=== PATIENT | female | born 1945 | race Caucasian/White ===

== ENCOUNTER → 2017-07-06 | Outpatient (CLI) | payer MEDICARE, OTHER ==
--- NOTE | 2017-07-06 14:33 | RAD ---
DATE: 07/06/2017. EXAM: DIGITAL SCREEN BILAT W/CAD. HISTORY: Routine mammographic screening. COMPARISON: 12/25/2015. This study was interpreted with the benefit of Computerized Aided Detection (CAD). FINDINGS: The breast parenchyma is heterogeneously dense, which could reduce sensitivity of mammography. Breast parenchyma level C.. There are no suspicious masses, microcalcifications or architectural distortion. The parenchymal pattern is stable, with greater density on the left than right. A lymph node laterally on the stable. Scattered and vascular calcifications are benign. BI-RADS CATEGORY: 2 BENIGN FINDING(S). RECOMMENDED FOLLOW-UP: 12M 12 MONTH FOLLOW-UP. PQRS compliance statement: Patient information was entered into a reminder system with a target due date 07/06/2018 for the next mammogram. Mammography is a sensitive method for finding small breast cancers, but it does not detect them all and is not a substitute for careful clinical examination. A negative mammogram does not negate a clinically suspicious finding and should not result in delay in biopsying a clinically suspicious abnormality. "Our facility is accredited by the [employer] Mammography Program."
== END | disposition home or self-care (01) ==
LOC: MAMMO 11:33
PROVIDERS: ATTEND Family Medicine
DX: Z12.31 Encounter for screening mammogram for malignant neoplasm of breast (principal)
CPT/HCPCS: 77067

== ENCOUNTER → 2017-08-30 | Outpatient (CLI) | payer MEDICARE, OTHER ==
--- NOTE | 2017-08-31 07:26 | RAD ---
Carotid ultrasound, 08/30/2017: History: Old stroke, carotid artery stenosis Duplex evaluation of the carotid arteries in the neck was performed including grayscale, color-flow and spectral Doppler analysis. There is moderate atherosclerotic plaquing in both common carotid arteries extending into the bifurcations. The plaques are partially calcified. The internal carotid arteries are tortuous bilaterally. The peak systolic velocity in the right internal carotid artery is 90 cm/s with an end-diastolic velocity of 24 cm/s. This produces an internal carotid to common carotid artery ratio on the right of 1.3. These Doppler findings suggest narrowing in the 0-50% diameter range. On the left, the peak systolic velocity in the internal carotid artery is 125 cm/s with an end-diastolic velocity of 24 cm/s. The internal carotid to common carotid artery ratio on the left is 1.4. These Doppler findings also suggest luminal narrowing in the 0-50% diameter range. Antegrade flow is present in both vertebral arteries in the neck. IMPRESSION: Moderate atherosclerotic plaquing at both carotid bifurcations with underlying luminal narrowing in the 0-50% diameter range bilaterally. Note: Stenosis calculations for CTA, MRA and conventional angiography are based upon determination of the distal ICA diameter in accordance with the NASCET methodology. Stenosis calculations for Doppler studies are derived from validated velocity criteria which are known to correlate with NASCET methodology of determining stenosis.
== END | disposition home or self-care (01) ==
LOC: US 13:54
PROVIDERS: ATTEND Family Medicine
DX: I65.23 Occlusion and stenosis of bilateral carotid arteries (principal)
CPT/HCPCS: 93880

== ENCOUNTER 2017-12-13 17:33 | Inpatient (IN) | payer MEDICARE, OTHER ==
[~2017-12-13] VITALS: Ht 165.1 cm; Wt 77.3 kg
--- NOTE | 2017-12-13 18:19 | PHYS DOC ---
Past History Past Medical History: COPD, CVA, High Cholesterol, Hypertension, Seizure Past Surgical History: No Surgical History Alcohol Use: None Drug Use: None Adult General Chief Complaint Chief Complaint: CHEST PAIN HPI HPI 71-year-old female presenting the emergency department today after being sent here from her doctor's office for evaluation. The patient has a history of a CVA and has difficulty communicating. She has been having chest pain intermittently over the past few days. She currently denies chest pain. She is a poor historian due to previous CVA. Review of systems is negative for abdominal pain nausea vomiting or diaphoresis. She is here with her daughter. All other review of systems is negative unless otherwise noted in history of present illness. ED course: 71-year-old female presenting the emergency pertinent today with intermittent chest pain over the past few days. She had an EKG which was done in clinic which showed a left bundle branch block pattern. Here the patient also has a left bundle branch block. She is comfortable appearing on examination is not diaphoretic. She denies having any chest pain or shortness of breath at this time. Previous EKG obtained and reviewed by myself from December 302011 which shows a normal QRS with LVH. No left bundle branch block pattern then. Scarbossa negative. Blood work and chest x-ray ordered. Patient was signed out at 6:10 PM with plans to follow-up on blood work and chest x-ray patient will likely be admitted for cardiac rule out and cardiac consultation. Review of Systems Review of Systems SEE ABOVE. Allergies Allergies Allergies Coded Allergies Type Severity Reaction Last Updated Verified No Known Drug Allergies 08/01/16 No Physical Exam Physical Exam SEE ABOVE Constitutional: Well developed, well nourished, no acute distress, non-toxic appearance. [] HENT: Normocephalic, atraumatic, bilateral external ears normal, oropharynx moist, no oral exudates, nose normal. [] Eyes: PERRLA, EOMI, conjunctiva normal, no discharge. [] Neck: Normal range of motion, no tenderness, supple, no stridor. [] Cardiovascular:Heart rate regular rhythm, no murmur [] Lungs & Thorax: Bilateral breath sounds clear to auscultation [] Abdomen: Bowel sounds normal, soft, no tenderness, no masses, no pulsatile masses. [] Skin: Warm, dry, no erythema, no rash. [] Back: No tenderness, no CVA tenderness. [] Extremities: No tenderness, no cyanosis, no clubbing, ROM intact, no edema. [] Neurologic: Alert and baseline aphasia from previous cva, normal motor function , normal sensory function, no focal deficits noted. [] Psychologic: Affect normal, judgement normal, mood normal. [] Current Patient Data Vital Signs Vital Signs Date Time Temp Pulse Resp B/P (MAP) Pulse Ox O2 Delivery O2 Flow Rate FiO2 12/13/17 17:51 98.1 78 18 97 Room Air EKG EKG [] Radiology/Procedures Radiology/Procedures [] Course & Med Decision Making Course & Med Decision Making Pertinent Labs and Imaging studies reviewed. (See chart for details) [] Dragon Disclaimer Dragon Disclaimer This electronic medical record was generated, in whole or in part, using a voice recognition dictation system. JORGE LUNA MD Dec 13, 2017 18:18
[2017-12-13 18:21] LABS: BASO # 0.1 x10^3/uL (0.0-0.2); BASO % 1 % (0-3); EOS # 0.1 x10^3/uL (0.0-0.7); EOS % 2 % (0-3); HEMATOCRIT 37.6 % (36.0-47.0); HEMOGLOBIN 12.9 g/dL (12.0-15.5); LYMPH # 2.3 x10^3/uL (1.0-4.8); LYMPH % 29 % (24-48); MEAN CORPUSCULAR HEMOGLOBIN 33 pg (25-35); MEAN CORPUSCULAR HGB CONC 34 g/dL (31-37); MEAN CORPUSCULAR VOLUME 97 fL (79-100); MONO # 0.6 x10^3/uL (0.0-1.1); MONO % 7 % (0-9); NEUT # 4.9 x10^3uL (1.8-7.7); NEUT % 61 % (31-73); PLATELET COUNT 341 x10^3/uL (140-400); RED BLOOD COUNT 3.86 x10^6/uL (3.50-5.40); RED CELL DISTRIBUTION WIDTH 13.3 % (11.5-14.5)
[2017-12-13 18:36] LABS: ALBUMIN 4.2 g/dL (3.4-5.0); CALCIUM 9.6 mg/dL (8.5-10.1); CREATININE 0.9 mg/dL (0.6-1.0); DIRECT BILIRUBIN 0.1 mg/dL (0.0-0.2); GFR 62.1; POTASSIUM 4.4 mmol/L (3.5-5.1); TOTAL BILIRUBIN 0.3 mg/dL (0.2-1.0); TOTAL PROTEIN 8.5 g/dL (6.4-8.2)
--- NOTE | 2017-12-13 19:00 | RAD ---
Exam: AP portable chest History: Chest pain, abnormal EKG. Comparison: November 28, 2013. Findings: The heart and mediastinal structures are within normal limits for size. Lungs are without infiltrate. No pleural effusion or pneumothorax is identified. Aortic atherosclerosis is seen. No failure is identified. Impression: 1. No acute cardiopulmonary process. Electronically signed by: Ozzy Villauneva MD (12/13/2017 6:57 PM) [facility]
[2017-12-13] MEDS ORDERED: ASPIRIN 81 MG TAB.CHEW PO ONE (19:45)
--- NOTE | 2017-12-13 21:00 | NUR ---
The patient, GET MARINO, 71 y/o, F admitted by FABRICIO MATAMOROS MD, was given written information regarding hospital policies, unit procedures and contact persons. Pt arrived to room 122 via gurney, accompanied by [facility] and nursing sup. Pt was sent to ED from PCP's office for c/o chest pain for the past several days. Family reports she has also has increased SOA with exertion. Pt has aphasia r/t prior CVA and has difficulty communicating, but able to follow directions. Noted right sided weakness which is her baseline, up with assist x1. Much of PMH and home meds obtained from daughter. Pt with seizure disorder, most recent seizure activity in the past few months. Bed padded for safety. Bed alarm set. Pt placed on telemetry, showing sinus tabitha with rate in the 50's. Serial troponins are ordered. Will consult [facility] cardiology in AM. POC discussed with pt's daughter, V/U. Valuables were checked and logged. Left in room. Pt has right hearing aid, removed and placed in specimen cup at bedside for the night.
[2017-12-13 21:07] VITALS: BP 151/65
[2017-12-13] MEDS ORDERED: IPRATRPIUM/ALBUTEROL 0.5/2.5MG 3 ML NEBU. NEB PRN (21:30)
[2017-12-13] MEDS ORDERED: LOSA50TA6 PO (22:31)
[2017-12-13] MEDS ORDERED: ATOR40TA59 PO (22:31)
[2017-12-13] MEDS ORDERED: NEBI10TA3 PO (22:31)
[2017-12-13] MEDS ORDERED: LAMO100T37 PO (22:31)
[2017-12-13] MEDS ORDERED: AMLO5TAB2 PO (22:31)
[2017-12-13] MEDS ORDERED: ASPI-612 PO (22:31)
[2017-12-13] MEDS ORDERED: POTA20LI27 PO (22:31)
[2017-12-13] MEDS ORDERED: FOLI1TAB16 PO (22:31)
[2017-12-13] MEDS ORDERED: OMEP40CA5 PO (22:31)
[2017-12-13] MEDS ORDERED: MULT1TAB52 PO (22:31)
[2017-12-13] MEDS ORDERED: IPRA3AMP29 NEB (22:31)
[2017-12-13] MEDS ORDERED: BUDE0.5A3 NEB (22:31)
[2017-12-13] MEDS ORDERED: CALC625T PO (23:07)
[2017-12-13] MEDS: BUDESONIDE 0.5 MG/2 ML NEBU NEB SCH (23:09)
[2017-12-13] MEDS: ATORVASTATIN CALCIUM 20 MG TABLET PO SCH (23:10)
[2017-12-14 05:43] VITALS: BP 163/79
--- NOTE | 2017-12-14 06:24 | NUR ---
Cardiology consult called to Dr. Lozada. L/M with answering service, awaiting call back.
--- NOTE | 2017-12-14 06:26 | EKG ---
[address] [address] Test Date: 2017-12-13 Test Time: 17:42:58 Pat Name: GET MARINO Department: Room: Gender: F Projection Technician: GUERLINE : [id number] Requested By: JORGE LUNA Order Number: [id number] Reading MD: Measurements Intervals [place] Rate: 75 P: -90 AK: 136 QRS: -25 QRSD: 148 T: 136 QT: 406 QTc: 456 Interpretive Statements SINUS RHYTHM LEFTWARD AXIS NON SPECIFIC INTRAVENTRICULAR BLOCK QRS(T) CONTOUR ABNORMALITY CONSISTENT WITH ANTEROSEPTAL INFARCT PROBABLY OLD ABNORMAL ECG RI6.01 No previous ECG available for comparison
[2017-12-14] MEDS: FOLIC ACID 1 MG TABLET PO SCH (08:32)
[2017-12-14] MEDS: MULTIVITAMIN with MINERAL TABLET. PO SCH (08:33)
[2017-12-14] MEDS: METOPROLOL TART IMMED RELEASE 50 MG TABLET PO SCH ×2 (08:33→21:00)
[2017-12-14] MEDS: PANTOPRAZOLE 40 MG TABLET. PO SCH ×2 (08:33→21:32)
[2017-12-14] MEDS: ASPIRIN ENTERIC COATED 81 MG TABLET.DR. PO SCH (08:33)
[2017-12-14] MEDS: LOSARTAN 50 MG TABLET. PO SCH (08:33)
[2017-12-14] MEDS: amLODIPine BESYLATE 5 MG TABLET PO SCH (08:33)
[2017-12-14] MEDS ORDERED: lamoTRIgine 100 MG TABLET. PO SCH (09:00)
[2017-12-14] MEDS ORDERED: NON FORMULARY ITEM (Budesonide (Pulmicort) 1 VIAL) NEB SCH (09:00)
[2017-12-14] MEDS: BUDESONIDE 0.5 MG/2 ML NEBU NEB SCH ×2 (09:38→20:00)
--- NOTE | 2017-12-14 09:41 | NUR ---
Pt is alert and appears to be oriented, has expressive aphasia. Pt reports that she feels better. Pt is NPO for potential cardiac testing. Will continue to monitor.
[2017-12-14 10:53] VITALS: BP 144/63
--- NOTE | 2017-12-14 10:56 | PDOC2 ---
CONSULT Date of Admission DATE: 12/14/17 TIME: 10:55 Reason for Consult: cp Problem List Problems Medical Problems: (1) Chest pain Status: Acute (2) Dizziness Status: Acute (3) LBBB (left bundle branch block) Status: Acute History of Present Illness Ms Abrams is a 71 year old female with history of stroke and resulting expressive aphasia. She was brought to the hospital by her daughter, whom she lives with, due to complaints of chest pain. She had apparently been complaining of chest pain off and on as well as having some increased dyspnea on exertion. Her daughter provides most history as the patient is unable to effectively communicate. Her daughter reports that overall her mother is physically functional with some mild balance issues. She does go to the store shopping with her daughter but only for short trips. Cardiovascular: HTN, hyperipidemia, Other (possible atrial fibrillation) Pulmonary: COPD CENTRAL NERVOUS SYSTEM: CVA, Seizure GI: GERD Psych: Depression Musculoskeletal: Other (osteoporosis, back pain) Family History significant family history of premature coronary disease both in her parents and son. Social History lives with her daughter, no smoking, no significant ETOH, no illicit drugs Current Medications Current Medications Aspirin (Children'S Aspirin) 324 mg 1X ONCE PO Last administered on 12/13/17at 19:56; Start 12/13/17 at 19:45; Stop 12/13/17 at 19:53; Status DC Fentanyl Citrate (Fentanyl 2ml Vial) 25 mcg PRN Q1HR PRN IV PAIN Last administered on 12/13/17at 19:56; Start 12/13/17 at 19:45; Stop 12/14/17 at 19:44 Albuterol/ Ipratropium (Duoneb) 3 ml PRN QID PRN NEB WHEEZING; Start 12/13/17 at 21:30 Losartan Potassium (Cozaar) 50 mg DAILY PO Last administered on 12/14/17at 08:33 ; Start 12/14/17 at 09:00 Amlodipine Besylate (Norvasc) 5 mg DAILY PO Last administered on 12/14/17at 08: 33; Start 12/14/17 at 09:00 Aspirin (Aspirin Enteric Coated) 81 mg DAILY PO Last administered on 12/14/17at 08:33; Start 12/14/17 at 09:00 Atorvastatin Calcium (Lipitor) 40 mg QHS PO Last administered on 12/13/17at 23: 10; Start 12/13/17 at 23:00 Non-Formulary Medication (Budesonide (Pulmicort)) 1 vial BID NEB ; Start at 09:00; Status UNV Folic Acid (Folic Acid) 1 mg DAILY PO Last administered on 12/14/17at 08:32; Start 12/14/17 at 09:00 Lamotrigine (LaMICtal) 500 mg DAILY PO ; Start 12/14/17 at 09:00; Status Cancel Multivitamins/ Calcium (Thera-M Plus) 1 tab DAILY PO Last administered on at 08:33; Start 12/14/17 at 09:00 Metoprolol Tartrate (Lopressor) 50 mg BID PO Last administered on 12/14/17at 08: 33; Start 12/14/17 at 09:00 Pantoprazole Sodium (Protonix) 40 mg BID PO Last administered on 12/14/17at 08: 33; Start 12/14/17 at 09:00 Potassium Chloride (KCl Oral Soln) 20 meq DAILYWBKFT PO ; Start 12/14/17 at 08: 00 Budesonide (Pulmicort) 0.5 mg RTBID NEB Last administered on 12/14/17at 09:38; Start 12/13/17 at 23:00 Lamotrigine (LaMICtal) 400 mg DAILY PO ; Start 12/14/17 at 11:00; Status UNV Active Scripts Active Reported Fibercon (Calcium Polycarbophil) 625 Mg Tablet 625 Mg PO DAILY Bystolic (Nebivolol Hcl) 10 Mg Tablet 1 Tab PO BID Duoneb 0.5-3(2.5) Mg/3 Ml (Albuterol/Ipratropium) 3 Ml Ampul.neb 3 Ml NEB QID PRN Pulmicort (Budesonide) 0.5 Mg/2 Ml Ampul.neb 1 Vial NEB BID Aspirin Ec (Aspirin) 81 Mg Tablet. 1 Tab PO DAILY Folic Acid 1 Mg Tablet 1 Tab PO DAILY Multivitamins (Multivitamin) 1 Each Tablet 1 Tab PO DAILY Atorvastatin Calcium 40 Mg Tablet 40 Mg PO HS Losartan Potassium 50 Mg Tablet 50 Mg PO DAILY Amlodipine Besylate 5 Mg Tablet 5 Mg PO DAILY Lamotrigine 100 Mg Tab.er.24 500 Mg PO DAILY Omeprazole 40 Mg Capsule.dr 40 Mg PO BID Potassium Chloride Oral Liquid (Potassium Chloride) 20 Meq/15 Ml Liquid 15 Ml PO DAILYWBKFT Allergies: Coded Allergies: Penicillins (Verified Allergy, Unknown, 12/13/17) Review of System as per HPI General: Alert, Cooperative, No acute distress HEENT: Atraumatic, EOMI Lungs: Clear to auscultation, Normal air movement Heart: Regular rate, Normal S1, Normal S2 Abdomen: Normal bowel sounds, Soft Extremities: No cyanosis, Normal pulses Neuro: Other (no acute deficits noted) Psych/Mental Status: Mental status NL, Mood NL VITALS Vital Signs Date Time Temp Pulse Resp B/P (MAP) Pulse Ox O2 Delivery O2 Flow Rate FiO2 12/14/17 10:53 97.4 54 20 144/63 (90) 97 Room Air Labs Laboratory Tests Test 12/13/17 18:00 12/13/17 22:45 12/14/17 03:22 White Blood Count 8.0 x10^3/uL (4.0-11.0) Red Blood Count 3.86 x10^6/uL (3.50-5.40) Hemoglobin 12.9 g/dL (12.0-15.5) Hematocrit 37.6 % (36.0-47.0) Mean Corpuscular Volume 97 fL (79-100) Mean Corpuscular Hemoglobin 33 pg (25-35) Mean Corpuscular Hemoglobin Concent 34 g/dL (31-37) Red Cell Distribution Width 13.3 % (11.5-14.5) Platelet Count 341 x10^3/uL (140-400) Neutrophils (%) (Auto) 61 % (31-73) Lymphocytes (%) (Auto) 29 % (24-48) Monocytes (%) (Auto) 7 % (0-9) Eosinophils (%) (Auto) 2 % (0-3) Basophils (%) (Auto) 1 % (0-3) Neutrophils # (Auto) 4.9 x10^3uL (1.8-7.7) Lymphocytes # (Auto) 2.3 x10^3/uL (1.0-4.8) Monocytes # (Auto) 0.6 x10^3/uL (0.0-1.1) Eosinophils # (Auto) 0.1 x10^3/uL (0.0-0.7) Basophils # (Auto) 0.1 x10^3/uL (0.0-0.2) Sodium Level 138 mmol/L (136-145) Potassium Level 4.4 mmol/L (3.5-5.1) Chloride Level 101 mmol/L (98-107) Carbon Dioxide Level 30 mmol/L (21-32) Anion Gap 7 (6-14) Blood Urea Nitrogen 15 mg/dL (7-20) Creatinine 0.9 mg/dL (0.6-1.0) Estimated GFR (Cockcroft-Gault) 62.1 Glucose Level 110 mg/dL (70-99) Calcium Level 9.6 mg/dL (8.5-10.1) Total Bilirubin 0.3 mg/dL (0.2-1.0) Direct Bilirubin 0.1 mg/dL (0.0-0.2) Aspartate Amino Transf (AST/SGOT) 15 U/L (15-37) Alanine Aminotransferase (ALT/SGPT) 22 U/L (14-59) Alkaline Phosphatase 134 U/L (46-116) Troponin I Quantitative < 0.017 ng/mL (0-0.055) < 0.017 ng/mL (0-0.055) 0.018 ng/mL (0-0.055) Total Protein 8.5 g/dL (6.4-8.2) Albumin 4.2 g/dL (3.4-5.0) Lipase 213 U/L (73-393) Images CXR - Impression: 1. No acute cardiopulmonary process. EKG - sinus rhythm, LBBB Assessment/Plan 1. Chest pain with new LBBB - will check echo and schedule for MPI in am. Check lipids and continue aspirin. 2. hypertension - resume home meds 3. hyperlipidemia - check lipids 4. prior stroke with questionable history of atrial fibrillation - will request records and consider outpatient event monitoring. CHIKI SALTER APRN Dec 14, 2017 10:56
[2017-12-14] MEDS: lamoTRIgine 100 MG TABLET. PO SCH (11:00)
[2017-12-14] MEDS: POTASSIUM CHLORIDE 20 MEQ/15 ML ORAL LIQUID. PO SCH (11:10)
--- NOTE | 2017-12-14 13:26 | HP ---
ADMIT DATE: 12/13/2017 HISTORY OF PRESENT ILLNESS: The patient is a 71-year-old female patient who was brought to the Emergency Department being sent from her doctor's office for evaluation. The patient has a history of CVA, has expressive aphasia, and apparently has been complaining of chest pain intermittently over the last few days, although by the time she arrived to the Emergency Room, she denied any chest pain. She was apparently evaluated in the Emergency Room and was found to have a new onset left bundle branch block pattern and given that she has multiple risk factors for coronary artery disease, a decision was made to admit her to rule out myocardial infarction and to consult the cardiology team for further evaluation and treatment. In the Emergency Room, her first set of cardiac enzyme was normal at less than 0.017. Her EKG showed that she has new onset of left bundle branch block. PAST MEDICAL HISTORY: Significant for hypertension, hyperlipidemia, left middle cerebral artery territory infarct with right-sided hemiplegia, aphasia, and dysphagia. She is also known to have seizure disorder and chronic obstructive pulmonary disease. PAST SURGICAL HISTORY: Unremarkable. ALLERGIES: She is allergic to PENICILLIN. MEDICATIONS: She is currently on following medications: She is on ipratropium bromide and albuterol sulfate 3 mL via nebulizer 4 times a day, atorvastatin calcium 40 mg at bedtime, nebivolol for Bystolic 10 mg twice a day, amlodipine besylate 5 mg daily, losartan potassium 50 mg once a day, aspirin 81 mg once a day, lamotrigine 500 mg daily. She is on potassium chloride 20 mEq in 15 mL daily with breakfast, Pulmicort 0.5 mg in 2 mL via nebulizer twice a day, calcium polycarbophil 625 mg daily, omeprazole 40 mg twice a day, folic acid 1 mg once a day, multivitamin 1 tablet once a day. FAMILY HISTORY: She has 2 sisters and 2 brothers. One of her brothers at the age of 58 because of myocardial infarction. The 2 sisters and the surviving brother all have hypertension and hyperlipidemia. Her mother is still alive at the age of 88 and is known to have atrial fibrillation and left bundle branch block. Her father at the age of 56 because of myocardial infarction. SOCIAL HISTORY: She is . She currently lives with her daughter. She has 1 daughter and 3 sons. One of her sons has multiple heart attacks and underwent open heart surgery and coronary artery bypass graft. She is an ex-smoker, quit in 2009. 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 REVIEW OF SYSTEMS: The patient denied any blurring of vision, cataract, glaucoma, or macular degeneration. Denied any earache, tinnitus, or sensorineural deafness. Denied nosebleeds, stuffy nose, or postnasal drip. Denied any sore throat, sore tongue, toothache, hoarseness of voice, or difficulty swallowing. Her daughter said that she has had upper GI endoscopy and dilatation of her esophagus. She has had also colonoscopy and was found to have diverticulosis without diverticulitis. PHYSICAL EXAMINATION: GENERAL: On arrival to the Emergency Room, the patient looked well and was clearly in no apparent respiratory distress. She was slightly pale, but no jaundice, cyanosis, or thyromegaly. No jugular venous distention. No limb edema. VITAL SIGNS: Her heart rate was 78, blood pressure was 172/80, temperature was 98.1, respiratory rate was 18, and oxygen saturation was 97% on room air. HEAD, EYES, EARS, NOSE, AND THROAT: Showed normocephalic, atraumatic. NECK: Supple. HEART: Showed normal first and second heart sounds with no gallop, rub, or murmur. CHEST: Clear to auscultation. No crepitation or rhonchi. ABDOMEN: Distended, soft, nontender. No guarding or rigidity. No organomegaly. Hernial orifice intact. Bowel sounds normal. NEUROLOGIC: She was awake, alert. She has what seems to be receptive aphasia. She apparently has right-sided hemiplegia, although she is not using any assistive devices and is able to walk without a walker or a cane using the glass and furniture to walk around in her house. LABORATORY DATA: Her lab work on admission showed a white cell count of 8000, hemoglobin 13, hematocrit 37, MCV 97, and platelet count 341,000. Her chemistry showed a serum sodium of 134, potassium 4.4, chloride 101, bicarbonate 30, anion gap of 7, BUN 15, creatinine 0.9. Estimated GFR was 62 mL per minute. Her glucose was 110, calcium was 9.6. Total bilirubin, AST, ALT, alkaline phosphatase were normal. Total protein was 8.5, albumin was 4.2. Her first set of cardiac enzymes showed troponin to be less than 0.017 and her EKG showed that she has a new onset of left bundle branch block. ASSESSMENT AND PLAN: The patient will be admitted with intermittent chest pain, dizziness, and new onset left bundle branch block. We will do 2 more sets of cardiac enzyme. We will consult the cardiology team and check also her fasting lipid profile and decide on further management accordingly. FABRICIO MATAMOROS MD DR: YAZAN/jesus JOB#: [id number] / [id number]
[2017-12-14 14:54] VITALS: BP 118/71
--- NOTE | 2017-12-14 17:55 | CARD ---
MR#: [id number] Date of Study: 12/14/2017 Ordering Physician: CHIKI SALTER, Referring Physician: FABRICIO MATAMOROS Tech: NICCI Sotelo APPROVED REPORT EXAM: Two-dimensional and M-mode echocardiogram with Doppler and color Doppler. Other Information Quality : AverageHR: 54bpm INDICATION CVA/TIA Chest Pain Echo Enhancing Agent Indication: Rule Out Septal Defect Agent/Amount Used: Agitated [id number] 2D DIMENSIONS RVDd3.3 (2.9-3.5cm)Left Atrium(2D)4.2 (1.6-4.0cm) IVSd2.2 (0.7-1.1cm)Aortic Root(2D)2.9 (2.0-3.7cm) LVDd3.7 (3.9-5.9cm)LVOT Diameter2.1 (1.8-2.4cm) PWd2.1 (0.7-1.1cm)LVDs2.9 (2.5-4.0cm) FS (%) 28.0 %SV26.1 ml LVEF(%)55.0 (>50%) Aortic Valve AoV Peak Polo.164.3cm/sAoV VTI36.7cm AO Peak GR.10.8mmHgLVOT Peak Polo.79.2cm/s LVOT VTI 20.95cmAO Mean GR.5mmHg LUCA (VMAX)1.08qh2UHI (VTI)2.01cm2 AI P 1/2 [id number] Mitral Valve MV E Divrnlji94.1cm/sMV E Peak Gr.129mmHg MV DECEL [id number] A Gtanrbte14.0cm/s E/A Ratio1.8 Pulmonary Valve PV Peak Fppzykdo549.5cm/sPV Peak Grad.6mmHg Tricuspid Valve TR P. Icnziiix736xc/sRAP [id number] TR Peak Gr.75jbSfYFAS58pjXz Pulmonary Vein S1 Pkuzqkpg22.8cm/sD2 Rqctvxqd41.3cm/s LEFT VENTRICLE The left ventricle is normal size. There is moderate concentric left ventricular hypertrophy. The lef t ventricular systolic function is normal and the ejection fraction is within normal range.EF 65% The re is normal LV segmental wall motion. The left ventricular diastolic function and filling is normal for age. RIGHT VENTRICLE The right ventricle is normal size. The right ventricular systolic function is normal. ATRIA The left atrium is mildly dilated. The right atrium size is normal. The interatrial septum is intact with no evidence for an atrial septal defect or patent foramen ovale as noted on 2-D or Doppler imagi ng. AORTIC VALVE The aortic valve is mildly calcified. Doppler and Color Flow revealed mild aortic regurgitation. Ther e is no significant aortic valvular stenosis. There is no aortic valvular vegetation. MITRAL VALVE The mitral valve is thickened but opens well. Mitral annular calcification is mild. There is no evide nce of mitral valve prolapse. There is no mitral valve stenosis. Doppler and Color-flow revealed mild mitral regurgitation. TRICUSPID VALVE The tricuspid valve leaflets are thickened , but open well. Doppler and Color Flow revealed mild tric uspid regurgitation. The PA pressure was estimated at 30 mmHg. There is no tricuspid valve prolapse o r vegetation. There is no tricuspid valve stenosis. PULMONIC VALVE The pulmonic valve is not well visualized. Doppler and Color Flow revealed no pulmonic valvular regur gitation. There is no pulmonic valvular stenosis. GREAT VESSELS The aortic root is normal size. The aortic root displays mild sclerocalcific changes of the aortic ro ot. The IVC is normal in size and collapses >50% with inspiration. PERICARDIAL EFFUSION There is no pleural effusion. There is no evidence of significant pericardial effusion. Critical Notification Critical Value: No <Conclusion> The left ventricular systolic function is normal and the ejection fraction is within normal range.EF 65% There is normal LV segmental wall motion. Doppler and Color Flow revealed mild aortic regurgitation. Doppler and Color-flow revealed mild mitral regurgitation. Signed by : Karsten Lozada, Electronically Approved : 12/14/2017 17:54:22
[2017-12-14 20:20] VITALS: BP 163/70
[2017-12-14] MEDS: ATORVASTATIN CALCIUM 20 MG TABLET PO SCH (21:32)
[2017-12-14 22:53] VITALS: BP 146/68
[2017-12-15 06:09] VITALS: BP 155/83
[2017-12-15] MEDS: lamoTRIgine 100 MG TABLET. PO SCH (08:58)
--- NOTE | 2017-12-15 09:12 | PDOC ---
PROGRESS NOTES Diagnosis Problem Problems Medical Problems: (1) Chest pain Status: Acute (2) Dizziness Status: Acute (3) LBBB (left bundle branch block) Status: Acute Assessment Problems Medical Problems: (1) Chest pain Status: Acute (2) Dizziness Status: Acute (3) LBBB (left bundle branch block) Status: Acute 1. Chest pain with new LBBB - MT ruled out. Normal LV function and wall motion by echo. Continue medical therapy with aspirin, statin and beta lauro. 2. hypertension - resume home meds 3. hyperlipidemia - controlled on current therapy. 4. prior stroke with questionable history of atrial fibrillation - will request records and plan for outpatient event monitoring. Subjective no cp, dyspnea or palpitations. up to BR without problems. ready for MPI. Objective tele - sinus rhythm with occasional isolated premature ventricular contractions and few short salvos of paroxysmal atrial tachycardia. no atrial fib observed. echo - The left ventricular systolic function is normal and the ejection fraction is within normal range.EF 65% There is normal LV segmental wall motion. Doppler and Color Flow revealed mild aortic regurgitation. Doppler and Color-flow revealed mild mitral regurgitation. Vital Signs Date Time Temp Pulse Resp B/P (MAP) Pulse Ox O2 Delivery O2 Flow Rate FiO2 12/15/17 06:09 97.8 60 18 155/83 (107) 95 Room Air Intake and Output 12/15/17 07:00 Intake Total 880 ml Balance 880 ml Intake Oral 880 ml # Voids 7 # Bowel Movements 1 Abdomen: Normal bowel sounds, Soft, No tenderness Heart: Regular rate, Normal S1, Normal S2 Extremities: No cyanosis, Normal pulses General: Alert, Cooperative, No acute distress HEENT: Atraumatic, EOMI Lungs: Clear to auscultation Neuro: Normal speech, Strength at 5/5 X4 ext Psych/Mental Status: Mental status NL, Mood NL Review of Relevant I have reviewed the following items jones (where applicable) has been applied. Labs Laboratory Tests Test 12/13/17 18:00 12/13/17 22:45 12/14/17 03:22 White Blood Count 8.0 x10^3/uL (4.0-11.0) Red Blood Count 3.86 x10^6/uL (3.50-5.40) Hemoglobin 12.9 g/dL (12.0-15.5) Hematocrit 37.6 % (36.0-47.0) Mean Corpuscular Volume 97 fL (79-100) Mean Corpuscular Hemoglobin 33 pg (25-35) Mean Corpuscular Hemoglobin Concent 34 g/dL (31-37) Red Cell Distribution Width 13.3 % (11.5-14.5) Platelet Count 341 x10^3/uL (140-400) Neutrophils (%) (Auto) 61 % (31-73) Lymphocytes (%) (Auto) 29 % (24-48) Monocytes (%) (Auto) 7 % (0-9) Eosinophils (%) (Auto) 2 % (0-3) Basophils (%) (Auto) 1 % (0-3) Neutrophils # (Auto) 4.9 x10^3uL (1.8-7.7) Lymphocytes # (Auto) 2.3 x10^3/uL (1.0-4.8) Monocytes # (Auto) 0.6 x10^3/uL (0.0-1.1) Eosinophils # (Auto) 0.1 x10^3/uL (0.0-0.7) Basophils # (Auto) 0.1 x10^3/uL (0.0-0.2) Sodium Level 138 mmol/L (136-145) Potassium Level 4.4 mmol/L (3.5-5.1) Chloride Level 101 mmol/L (98-107) Carbon Dioxide Level 30 mmol/L (21-32) Anion Gap 7 (6-14) Blood Urea Nitrogen 15 mg/dL (7-20) Creatinine 0.9 mg/dL (0.6-1.0) Estimated GFR (Cockcroft-Gault) 62.1 Glucose Level 110 mg/dL (70-99) Calcium Level 9.6 mg/dL (8.5-10.1) Total Bilirubin 0.3 mg/dL (0.2-1.0) Direct Bilirubin 0.1 mg/dL (0.0-0.2) Aspartate Amino Transf (AST/SGOT) 15 U/L (15-37) Alanine Aminotransferase (ALT/SGPT) 22 U/L (14-59) Alkaline Phosphatase 134 U/L (46-116) Troponin I Quantitative < 0.017 ng/mL (0-0.055) < 0.017 ng/mL (0-0.055) 0.018 ng/mL (0-0.055) Total Protein 8.5 g/dL (6.4-8.2) Albumin 4.2 g/dL (3.4-5.0) Lipase 213 U/L (73-393) Triglycerides Level 103 mg/dL (0-150) Cholesterol Level 158 mg/dL (0-200) LDL Cholesterol, Calculated 71 mg/dL (0-100) VLDL Cholesterol, Calculated 20 mg/dL (0-40) Non-HDL Cholesterol Calculated 91 mg/dL (0-129) HDL Cholesterol 67 mg/dL (40-60) Cholesterol/HDL Ratio 2.0 Medications Current Medications Aspirin (Children'S Aspirin) 324 mg 1X ONCE PO Last administered on 12/13/17at 19:56; Start 12/13/17 at 19:45; Stop 12/13/17 at 19:53; Status DC Fentanyl Citrate (Fentanyl 2ml Vial) 25 mcg PRN Q1HR PRN IV PAIN Last administered on 12/13/17at 19:56; Start 12/13/17 at 19:45; Stop 12/14/17 at 19:44 ; Status DC Albuterol/ Ipratropium (Duoneb) 3 ml PRN QID PRN NEB WHEEZING; Start 12/13/17 at 21:30 Losartan Potassium (Cozaar) 50 mg DAILY PO Last administered on 12/14/17at 08:33 ; Start 12/14/17 at 09:00 Amlodipine Besylate (Norvasc) 5 mg DAILY PO Last administered on 12/14/17at 08: 33; Start 12/14/17 at 09:00 Aspirin (Aspirin Enteric Coated) 81 mg DAILY PO Last administered on 12/14/17at 08:33; Start 12/14/17 at 09:00 Atorvastatin Calcium (Lipitor) 40 mg QHS PO Last administered on 12/14/17at 21: 32; Start 12/13/17 at 23:00 Non-Formulary Medication (Budesonide (Pulmicort)) 1 vial BID NEB ; Start at 09:00; Status UNV Folic Acid (Folic Acid) 1 mg DAILY PO Last administered on 12/14/17at 08:32; Start 12/14/17 at 09:00 Lamotrigine (LaMICtal) 500 mg DAILY PO ; Start 12/14/17 at 09:00; Status Cancel Multivitamins/ Calcium (Thera-M Plus) 1 tab DAILY PO Last administered on at 08:33; Start 12/14/17 at 09:00 Metoprolol Tartrate (Lopressor) 50 mg BID PO Last administered on 12/14/17at 21: 00; Start 12/14/17 at 09:00 Pantoprazole Sodium (Protonix) 40 mg BID PO Last administered on 12/14/17at 21: 32; Start 12/14/17 at 09:00 Potassium Chloride (KCl Oral Soln) 20 meq DAILYWBKFT PO Last administered on at 11:10; Start 12/14/17 at 08:00 Budesonide (Pulmicort) 0.5 mg RTBID NEB Last administered on 12/14/17at 20:00; Start 12/13/17 at 23:00 Lamotrigine (LaMICtal) 400 mg DAILY PO Last administered on 12/15/17at 08:58; Start 12/14/17 at 11:00 Active Scripts Active Reported Fibercon (Calcium Polycarbophil) 625 Mg Tablet 625 Mg PO DAILY Bystolic (Nebivolol Hcl) 10 Mg Tablet 1 Tab PO BID Duoneb 0.5-3(2.5) Mg/3 Ml (Albuterol/Ipratropium) 3 Ml Ampul.neb 3 Ml NEB QID PRN Pulmicort (Budesonide) 0.5 Mg/2 Ml Ampul.neb 1 Vial NEB BID Aspirin Ec (Aspirin) 81 Mg Tablet.dr 1 Tab PO DAILY Folic Acid 1 Mg Tablet 1 Tab PO DAILY Multivitamins (Multivitamin) 1 Each Tablet 1 Tab PO DAILY Atorvastatin Calcium 40 Mg Tablet 40 Mg PO HS Losartan Potassium 50 Mg Tablet 50 Mg PO DAILY Amlodipine Besylate 5 Mg Tablet 5 Mg PO DAILY Lamotrigine 100 Mg Tab.er.24 500 Mg PO DAILY Omeprazole 40 Mg Capsule.dr 40 Mg PO BID Potassium Chloride Oral Liquid (Potassium Chloride) 20 Meq/15 Ml Liquid 15 Ml PO DAILYWBKFT Vitals/I & O Vital Sign - Last 24 Hours 12/14/17 12/14/17 12/14/17 12/14/17 09:39 10:53 14:54 20:00 Temp 97.4 98.2 Pulse 54 57 Resp 20 20 B/P (MAP) 144/63 (90) 118/71 (87) Pulse Ox 96 97 97 O2 Delivery Room Air Room Air Room Air Room Air 12/14/17 12/14/17 12/14/17 12/14/17 20:20 20:37 21:00 22:53 Temp 98.0 98.3 Pulse 61 61 61 Resp 20 B/P (MAP) 163/70 (101) 163/70 146/68 (94) Pulse Ox 95 94 O2 Delivery Room Air Room Air Room Air 12/15/17 06:09 Temp 97.8 Pulse 60 Resp 18 B/P (MAP) 155/83 (107) Pulse Ox 95 O2 Delivery Room Air Intake and Output 12/14/17 12/14/17 12/15/17 15:00 23:00 07:00 Intake Total 240 ml 640 ml Balance 240 ml 640 ml CHIKI SALTER APRN Dec 15, 2017 09:12
[2017-12-15] MEDS ORDERED: REGADENOSON 0.4 MG/5 ML DISP.SYRIN. IV ONE (09:45)
[2017-12-15] MEDS: MULTIVITAMIN with MINERAL TABLET. PO SCH (12:05)
[2017-12-15] MEDS: METOPROLOL TART IMMED RELEASE 50 MG TABLET PO SCH (12:05)
[2017-12-15] MEDS: ASPIRIN ENTERIC COATED 81 MG TABLET.DR. PO SCH (12:06)
[2017-12-15] MEDS: amLODIPine BESYLATE 5 MG TABLET PO SCH (12:06)
[2017-12-15] MEDS: LOSARTAN 50 MG TABLET. PO SCH (12:06)
[2017-12-15] MEDS: PANTOPRAZOLE 40 MG TABLET. PO SCH (12:06)
[2017-12-15] MEDS: POTASSIUM CHLORIDE 20 MEQ/15 ML ORAL LIQUID. PO SCH (12:07)
[2017-12-15] MEDS: FOLIC ACID 1 MG TABLET PO SCH (12:09)
[2017-12-15] MEDS: BUDESONIDE 0.5 MG/2 ML NEBU NEB SCH (12:12)
[2017-12-15] MEDS ORDERED: METOPROLOL TARTRATE 5 MG/5 ML VIAL. IV ONE ×2 (12:43→13:15)
[2017-12-15 12:45] VITALS: BP 164/110
[2017-12-15] MEDS ORDERED: MORPHINE SULFATE 2 MG/ML DISP.SYRIN. ONE (12:50)
[2017-12-15 12:51] VITALS: BP 136/105
[2017-12-15] MEDS ORDERED: LORazepam 2 MG/ML VIAL ONE (12:57)
[2017-12-15 12:58] VITALS: BP 127/77
[2017-12-15] MEDS ORDERED: LORazepam 2 MG/ML VIAL IV PRN (13:00)
[2017-12-15] MEDS ORDERED: NITROGLYCERIN SUBLINGUAL 0.4 MG BOTTLE OF 25. SL PRN ×2 (13:00)
[2017-12-15] MEDS ORDERED: MORPHINE SULFATE 2 MG/ML DISP.SYRIN. IV PRN (13:00)
--- NOTE | 2017-12-15 13:47 | NUR ---
NSG NOTE; TACHYCARDIC/SOA/CP EPISODE STEPH WITH [facility]UC MED CALLED AT 1235 STATING THE PT BECAME SOA AND TACHYCARDIC SOON SHE LAID DOWN ON THE IMAGING TABLE. SHE HAD HER PO METOPROLOL AT 1205 AFTER THE AM STRESS TEST. DR MATAMOROS AND I WENT DOWN TO RADIOLOGY AND ASSESSED THE PT. SHE WAS SOA AND C/O LEFT LOWER CHEST/BREAST PAIN. HER HR WAS IN THE 140s. WE TOOK HER VIA W/C TO ICU [address] MATAMOROS'S ORDERS. SHE WAS GIVEN METOPROLOL 5 MG IV AT 1245/MORPHINE 2 MG IV AT 1254/A NITRO TAB AT 1258 AND ATIVAN 0.5 MG IV AT 1300. HER HR CAME DOWN TO THE 90s; HER SOA DIMNISHED, AND BECAME MORE COMFORTABLE. HONG BEAVERS WAS GIVEN REPORT AT 1315 AT THE BEDSIDE. THE PT'S SON AND DAUGHTER WERE IN HER OLD ROOM 122 AND ACCOMP TO ICU 6.
--- NOTE | 2017-12-15 14:30 | NUR ---
Patient back from stress test without any issues, HR afib and rate controlled. PT denies chest pain or SOA. Awaiting results.
--- NOTE | 2017-12-15 15:20 | RAD ---
MR#: [id number] Date of Study: 12/15/2017 Ordering Physician: CHIKI SALTER, Referring Physician: ROMAINE ULRICH Tech: JIM Bryant APPROVED REPORT Test Type: Pharmacological Stress Nurse/Tech: JIM Bryant Test Indications: Chest pain Cardiac History: none Medications: see EHR Medical History: see EHR Resting ECG: LBBB Resting Heart Rate: 98 bpm Resting Blood Pressure: 138/70mmHg Pretest Chest Pain: None Nurse/Tech Notes Consent: The procedure was explained to the patient in lay terms. Informed consent was witnessed. Desmond eout was entered into [employer]. History and Stress Test performed by JIM Bryant Pharm. Details Pharmacologic stress testing was performed using 0.4mg per 5ml of regadenoson given intravenously ove r 7-10 seconds. POST EXERCISE Reason for Termination: Infusion complete Max HR: 131 bpm Max Blood Pressure: 110/64mmHg Blood Pressure response to exercise: Normal blood pressure response during stress. Chest Pain: No. INTERPRETATION Stress EKG Conclusion: The resting EKG shows atrial fibrillation, a nonspecific interventricular bloc k and nonspecific ST-T wave changes. The stress EKG shows no significant changes from baseline. No EKG evidence of stressed induced ischemia. Imaging Protocol IMAGE PROTOCOL: Rest Tc-99m/stress Tc-99m 1 day Rest: Stress: Viability: Radiopharm.Tc99m [id number] Sestamibi Dose11.4mCi 35.9mCi Duration 15min. 12min. Img Date 12/15/2017 12/15/2017 Inj-Img [id number]. 120min. Rest Admin Site:IV - Left AntecubitalAdministrator: JIM Bryant Stress Admin Site: IV - Left AntecubitalAdministrator: JIM Bryant STRESS DATA End Diast. Vol.107.0mlAv. Heart Rate80.0bpm LVEDV index BSA2.0mlCardiac Output0.1L/min End Syst. Vol.49.0mlCO Index BSA4.7L/min LVESV index BSA1.0mlMyocardial Noqb297.0g Eject. Xceklodf71.0% Stress Rates Pk. Fill Rate3.07EDV/secLVtime Pk. Fill 149.64msec Pk. Empty Rate2.54ESV/secLVtime Pk. Ptdzc011.84msec 1/3 Pk. Fill1.33EDV/sec Stress Scores Regional WT1.00Summed WT26.00 Regional WM0.00Summed WM11.00 LV Perfusion The stress scans have an anterior lateral defect. The rest scans have an anterior lateral defect. Nuclear imaging is consistent with an anterolateral infarct with mild arabella-infarct ischemia. Wall Motion Left ventricular systolic function is intact with an ejection fraction of 54% and minimal apical hypo kinesis LV Perf. Quant 17 Seg. SSS19.00 17 Seg. SRS12.00 17 Seg. SDS7.00 Stress Defect Extent (% LAD)35.00Rest Defect Extent (% LAD)9.40Rev. Defect Extent (% LAD)28.10 Stress Defect Extent (% LCX) 62.50Rest Defect Extent (% LCX)61.30Rev. Defect Extent (% LCX)7.50 Stress Defect Extent (% RCA)2.20Rest Defect Extent (% RCA)0.00Rev. Defect Extent (% RCA)2.20 Stress Defect Extent (% HERLINDA)39.80Rest Defect Extent (% HERLINDA)22.00Rev. Defect Extent (% HERLINDA)25.40 Conclusion 1. Baseline atrial fibrillation with no EKG evidence of stress-induced ischemia. 2. Nuclear imaging shows an anterior lateral infarct with mild arabella-infarct reversible ischemia. 3. Left ventricular systolic function is intact with an ejection fraction of 54% and minimal apical h ypokinesis. 4. Moderate risk Lexiscan nuclear stress test. Signed by : Santo Anderson MD Electronically Approved : 12/15/2017 15:19:44
[2017-12-15] MEDS ORDERED: ISOSORBIDE MONONITRATE ER 30 MG TAB.ER.24H PO SCH (16:00)
--- NOTE | 2017-12-15 16:15 | NUR ---
Family requests and wondering if patient is allowed to go home. Spoke with Lilian ROBERTSON in regards to patients status. Patient is cleared cardiac [place]. Stress test resulted and will start on Imdur and Xarelto. Scripts called into [facility]. Notified Dr. Hubbard of requests and states patient is cleared to discharge.
[2017-12-15] MEDS ORDERED: RIVA10TA PO (16:21)
[2017-12-15] MEDS ORDERED: ISOS30TA4 PO (16:21)
[2017-12-15] MEDS ORDERED: RIVAROXABAN 10 MG TABLET. PO SCH (17:00)
[2017-12-15 17:08] VITALS: BP 157/84
--- NOTE | 2017-12-15 18:38 | NUR ---
Patient discharged from facility at this time via wheelchair to family car. Patient and family able to verbalize POC and discharge instructions. Give new medication information and followup appointment with Dr. Esposito. Belongings left with patient and IV discontinued.
--- NOTE | 2017-12-16 11:27 | PN ---
DATE: 12/15/2017 SUBJECTIVE: The patient was taken for her stress test and given the radiotracer, was about to start acquiring images and when they tried to lay her flat, the patient developed severe chest pain and her heart rate has risen to 140-150, was clutching her chest, complaining of severe chest pain. By the time she arrived there, the patient was extremely pale, complaining of severe chest pain, so we did took her to ICU. She was given 5 mg of metoprolol IV. While in the ICU before we managed to give her the metoprolol, her heart rate goes up to 165. She was orthopneic, was unable to lie flat and continued to complain of severe chest pain. By the time the heart rate slowed down, she was also given sublingual nitroglycerin, 2 mg of morphine. I also gave her 0.5 mg of IV Ativan. Finally, her heart rate dropped down and her chest pain was resolved. We did speak with the instrument man who basically continued to insist that she needs to continue to finish the stress test, thinking that this is more manifestation of anxiety, I am not really sure that this the case here given that the heart rate went up to 165. The patient was complaining of severe chest pain. By the time she left the ICU to finish her stress test her heart rate was down to 89, blood pressure was 127/77, respiratory rate was 26 and oxygen saturation was 99% on 2 liters of oxygen. PHYSICAL EXAMINATION: HEAD, EYES, EARS, NOSE AND THROAT: Showed normocephalic, atraumatic. NECK: Supple. HEART: Showed normal first and second heart sounds with no gallop, rub, or murmur. CHEST: Clear to auscultation. No crepitation or rhonchi. ABDOMEN: Distended, soft, nontender. No guarding or rigidity. No organomegaly. Hernial orifice intact. Bowel sounds normal. NEUROLOGIC: She is awake, alert. Unfortunately, she has what seems to be almost global aphasia; however, she has right-sided hemiparesis; however, she is able to walk without difficulty. LABORATORY DATA AND STUDIES: She did have 3 sets of cardiac enzymes as of yesterday. We did repeat another 12-lead EKG and also cardiac enzyme results which is still pending at the time of this dictation. Her serum triglycerides were 103, total cholesterol was 58, LDL was 71, VLDL was 20, HDL cholesterol was 67 and the ratio was 2. White cell count was 8000, hemoglobin 13, hematocrit 38, MCV 97, and platelet count 341,000. ASSESSMENT AND PLAN: Intermittent chest pain with new-onset left bundle branch block. The patient has 3 sets of cardiac enzymes that ruled out myocardial infarction. However, she has severe chest pain and her heart rate was accelerated when she started her stress test with heart rate that went up from 140-165, that treated with IV metoprolol 5 mg together with morphine 2 mg IV, 0.5 mg of Ativan, and 0.4 mg sublingual nitroglycerin. The Cardiology team was consulted and obviously will await the result of the nuclear stress test to decide on further management. 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 She is known to have seizure disorder as well as chronic obstructive pulmonary disease. FABRICIO MATAMOROS MD DR: YAZAN/jesus JOB#: [id number] / [id number]
--- NOTE | 2017-12-16 14:00 | DS ---
DATE OF DISCHARGE: 12/15/2017 HISTORY AND HOSPITAL COURSE: The patient is a 71-year-old female patient who came with a right-sided hemiparesis and aphasia, who came to [facility] with a complaint of recurrent episode of chest pain. It was difficult to find more details about her complaint as she has expressive aphasia, but her daughter stated that she does have this complaint and she was evaluated and was admitted, has 3 sets of cardiac enzymes that were negative. She underwent a nuclear stress test that apparently showed baseline atrial fibrillation with no EKG evidence of stress-induced ischemia. Her nuclear imaging shows an anterolateral infarct with mild arabella-infarct reversible ischemia. Left ventricular systolic function is intact with an ejection fraction 54% and minimal apical hypokinesis, moderate-risk Lexiscan nuclear stress test. The patient was started on Xarelto as well as isosorbide mononitrate. Upon, consultation with the register in chancery, the patient was discharged home to be followed as an outpatient with no indication for cardiac catheterization. PHYSICAL EXAMINATION: GENERAL: On the discharge, she was sitting slightly propped up in bed, in no apparent respiratory distress, slightly pale, no jaundice, cyanosis, lymphadenopathy or thyromegaly. No jugular venous distention. No limb edema. VITAL SIGNS: Her heart rate was 79, blood pressure was 157/84, temperature was 98, respiratory rate was 26 and oxygen saturation was 99% on room air. HEAD, EYES, EARS, NOSE AND THROAT: Normocephalic, atraumatic. NECK: Supple. HEART: Showed normal first and second sounds. No gallop, rub or murmur. CHEST: Clear to auscultation. No crepitation or rhonchi. ABDOMEN: Distended, soft, nontender. No guarding or rigidity. No organomegaly. Hernial orifice intact. Bowel sounds normal. NEUROLOGIC: She has right-sided hemiparesis with expressive aphasia. However, the patient is ambulatory without assistance or assistive devices. LABORATORY DATA: Showed a white cell count of 8000, hemoglobin 13, hematocrit 38, MCV 97, and platelet count 341,000. Her serum sodium was 138, potassium 4.4, chloride 101, bicarbonate 30, anion gap of 7, BUN 15, creatinine 0.9, estimated GFR was 62 mL per minute. Her glucose was 110, calcium was 9.6. Total bilirubin, AST, ALT, alkaline phosphatase were normal. Her total protein was 8.5, albumin was 4.2. She did have 3 sets of cardiac enzyme, all of them were less than 0.017. Her serum triglycerides were 103, total cholesterol 58, LDL was 71, VLDL was 20. Her HDL cholesterol was 67 and the ratio was 2. DISCHARGE MEDICATIONS: She was discharged home to continue on following medications: Amlodipine besylate 5 mg daily, aspirin 81 mg once a day, atorvastatin 40 mg at bedtime, Pulmicort 0.5 mg twice a day, folic acid 1 mg daily, DuoNeb 4 times a day, isosorbide mononitrate 30 mg once a day, lamotrigine 100 mg, she gets 500 mg daily, losartan potassium 50 mg daily, multivitamin 1 tablet once a day, nebivolol for Bystolic 10 mg daily, omeprazole 40 mg daily, potassium chloride 20 mEq in 15 mL of liquid once a day and rivaroxaban for Xarelto 20 mg daily. FINAL DISCHARGE DIAGNOSES: Chest pain, the myocardial infarction ruled out. Left bundle branch block that is new; however, her nuclear stress test showed no evidence of reversible ischemia. Hypertension, hyperlipidemia, left middle cerebral artery territory infarct with left-sided hemiparesis and expressive aphasia. She also has a questionable history of atrial fibrillation and new onset left bundle branch block for which she was discharged on rivaroxaban. She will follow with Dr. Tucker's his office. FABRICIO MATAMOROS MD DR: YAZAN/jesus JOB#: [id number] / [id number]
== END 2017-12-15 18:38 | disposition home or self-care (01) | DRG 308 ==
LOC: ER 17:33 → 1 SOUTH 19:40 → ICU 12-15 12:48
PROVIDERS: ADMIT Internal Medicine; ATTEND Internal Medicine
DX: I44.7 Left bundle-branch block, unspecified (principal); I63.9 Cerebral infarction, unspecified; R47.01 Aphasia; E78.00 Pure hypercholesterolemia, unspecified; R13.10 Dysphagia, unspecified; E78.5 Hyperlipidemia, unspecified; F32.9 Major depressive disorder, single episode, unspecified; G40.909 Epilepsy, unspecified, not intractable, without status epilepticus; I10 Essential (primary) hypertension; I48.91 Unspecified atrial fibrillation; J44.9 Chronic obstructive pulmonary disease, unspecified; M81.0 Age-related osteoporosis without current pathological fracture; K21.9 Gastro-esophageal reflux disease without esophagitis; Z82.49 Family history of ischemic heart disease and other diseases of the circulatory system; Z95.1 Presence of aortocoronary bypass graft; Z88.0 Allergy status to penicillin; Z87.891 Personal history of nicotine dependence
CPT/HCPCS: 99285; C8929; 36415; 71045; 78452; 80048; 80061; 80076; 82553; 83690; 84484; 85025; 93005; 93017; 94640; 96374; 96375; 96376; A9500; J2060; J2270; J2785; J3010; J3490; J7626